=== PATIENT | female | born 1970 | race Caucasian/White ===

== ENCOUNTER 2017-03-29 03:06 | Emergency (ER) | payer OTHER ==
[~2017-03-29] VITALS: Ht 167.6 cm; Wt 102.0 kg
[2017-03-29] MEDS ORDERED: ALBUTEROL (0.083%) 2.5MG/3ML NEB HHN STA ×2 (03:36→04:49)
[2017-03-29] MEDS ORDERED: IPRATROPIUM BROMIDE (0.02%) 0.5MG/2.5ML NEB HHN STA ×2 (03:36→04:49)
[2017-03-29] MEDS ORDERED: METHYLPREDNISOLONE SOD SUCC 125 MG/2 ML VIAL IV STA (03:36)
[2017-03-29] MEDS ORDERED: PREDNISONE 20MG TABLET PO STA (03:36)
[2017-03-29] MEDS ORDERED: ALBUTEROL (0.5%) 2.5MG/0.5ML NEB HHN ONE (03:48)
[2017-03-29] MEDS ORDERED: IPRATROPIUM/ALBUTEROL 0.5-3(2.5)MG/3ML NEB ONE (03:48)
[2017-03-29 05:25] VITALS: BP 122/69
== END 2017-03-29 05:35 | disposition home or self-care (01) ==
LOC: ER 03:06
DX: J45.901 Unspecified asthma with (acute) exacerbation (principal); Z88.1 Allergy status to other antibiotic agents; Z88.0 Allergy status to penicillin; Z88.2 Allergy status to sulfonamides; Z87.891 Personal history of nicotine dependence
CPT/HCPCS: 94640; 96374; 99284; J2930; J7512; J7611; J7620; Z7610